=== PATIENT | male | born 1965 | race Caucasian/White ===

== ENCOUNTER 2017-12-16 07:11 | Emergency (ER) | payer SELFPAY ==
[~2017-12-16] VITALS: Ht 188 cm; Wt 100.0 kg
[2017-12-16 07:14] VITALS: BP 118/62; PULSE 54; RESP 14; TEMP 97.6; O2SAT 99
--- NOTE | 2017-12-16 07:32 | PD ---
HPI Chief Complaint: Cold / Flu Symptoms Time Seen by Provider: 07:29 Travel History International Travel<30 days: No Contact w/Intl Traveler<30days: No Traveled to known affect area: No History of Present Illness HPI 52-year-old male presents one week history of upper respiratory symptoms with increasing cough congestion and wheezing. Patient is a smoker. Patient denies fever, chills, or significant abdominal pain, nausea, or vomiting. Patient has no chest pain. Patient states the cough has been keeping him up at night. Patient has no known drug allergies. [facility] Social History Alcohol Use: Yes (weekly) Tobacco Use: Yes Substance Use: No Allergies-Medications (Allergen,Severity, Reaction): Coded Allergies: No Known Allergies (Verified Allergy, Unknown, 12/16/17) Review of Systems Except as stated in HPI: all other systems reviewed are Neg General / Constitutional: Positive: Chills, No: Fever Eyes: No: Visual changes HENT: Positive: Sore Throat, Rhinitis, Rhinorrhea, Congestion, No: Headaches, Vertigo, Lightheadedness, Nosebleed, Neck Stiffness, Neck Pain, Masses, Dental Difficulties, Earache Cardiovascular: No: Chest Pain or Discomfort Respiratory: Positive: Cough, Shortness of Breath, Wheezing, No: Sneezing, Orthopnea, Hemoptysis, Night Sweats, Pleuritic Pain Gastrointestinal: No: Nausea, Vomiting, Diarrhea, Abdominal Pain Genitourinary: No: Dysuria Musculoskeletal: No: Pain Skin: No Rash Neurologic: No: Weakness Psychiatric: No: Depression Endocrine: No: Polydipsia Hematologic/Lymphatic: No: Easy Bruising Physical Exam Narrative GENERAL: Patient appears ill but not septic. Patient is noted to have muffled voice. SKIN: Warm and dry. Normal color. Normal turgor. HEAD: Atraumatic. Normocephalic. No sinus tenderness to percussion. EYES: Pupils equal and round. No scleral icterus. No injection or drainage. ENT: No nasal bleeding moderate clear white nasal discharge. Mucous membranes pink and moist. TMs clear bilaterally. Pharynx is unremarkable. Airway is patent. NECK: Trachea midline. Supple and nontender. CARDIOVASCULAR: Regular rate and rhythm. RESPIRATORY: No accessory muscle use. Diffuse wheezes throughout to auscultation. Breath sounds equal bilaterally. GASTROINTESTINAL: Abdomen soft, non-tender, nondistended. Hepatic and splenic margins not palpable. MUSCULOSKELETAL: Extremities without clubbing, cyanosis, or edema. No obvious deformities. NEUROLOGICAL: Awake and alert. No obvious cranial nerve deficits. Motor grossly within normal limits. Five out of 5 muscle strength in the arms and legs. Normal speech. PSYCHIATRIC: Appropriate mood and affect; insight and judgment normal. Data Data Last Documented VS Vital Signs Date Time Temp Pulse Resp B/P (MAP) Pulse Ox O2 Delivery O2 Flow Rate FiO2 12/16/17 07:27 18 97 Room Air 12/16/17 07:14 97.6 54 118/62 (80) Orders Orders Prednisone (Deltasone) (12/16/17 07:45) Duoneb X 1 Single Dose (12/16/17 07:45) MDM Medical Decision Making Medical Screen Exam Complete: Yes Emergency Medical Condition: Yes Differential Diagnosis Upper respiratory infection. Bronchitis. Wheezing. Narrative Course Patient is medically stable at time of exam. Patient given DuoNeb 1. Patient given prednisone 40 mg by mouth. Patient is felt to have wheezy bronchitis. Patient will be treated with azithromycin Dosepak. Patient placed on prednisone 20 mg daily for the next 7 days. Patient given albuterol metered-dose inhaler 2 puffs every 4-6 hours when necessary cough and wheeze. Patient is encouraged to quit smoking. Patient can follow-up with his primary care physician or return to the ED with worsening symptoms as needed. Diagnosis Primary Impression: Acute wheezy bronchitis Referrals: Primary Care Physician Patient Instructions: Acute Bronchitis (ED), General Instructions, How to Use a Metered-Dose Inhaler (ED), Prednisone (By mouth) Additional Instructions: Patient is medically stable at time of exam. Patient given DuoNeb 1. Patient given prednisone 40 mg by mouth. Patient is felt to have wheezy bronchitis. Patient will be treated with azithromycin Dosepak. Patient placed on prednisone 20 mg daily for the next 7 days. Patient given albuterol metered-dose inhaler 2 puffs every 4-6 hours when necessary cough and wheeze. Patient is encouraged to quit smoking. Patient can follow-up with his primary care physician or return to the ED with worsening symptoms as needed. Med/Other Pt SpecificInfo: Prescription(s) given Disposition: 01 DISCHARGE HOME Condition: Stable Saravanan Christian Dec 16, 2017 07:32
[2017-12-16] MEDS ORDERED: AZIT250T3 PO (07:39)
[2017-12-16] MEDS ORDERED: VENTAER INH (07:39)
[2017-12-16] MEDS ORDERED: PRED20 PO (07:39)
[2017-12-16] MEDS ORDERED: predniSONE 20 MG TAB PO ONE (07:45)
[2017-12-16] MEDS ORDERED: RESP: ALBUTEROL 2.5 MG/IPRATROPIUM 0.5 MG NEB (SCH) INH ONE (07:45)
== END 2017-12-16 08:39 | disposition home or self-care (01) ==
LOC: NEPD 07:11
DX: J20.9 Acute bronchitis, unspecified (principal); R06.2 Wheezing; Z72.0 Tobacco use
CPT/HCPCS: 94664; 99284; J7512